=== PATIENT | female | born 1995 | race Caucasian/White ===

== ENCOUNTER 2017-09-04 23:19 | Emergency (ER) | payer OTHER ==
--- NOTE | 2017-09-04 23:32 | ER Report ---
History and Physical Time Seen By MD: 23:29 Hx. of Stated Complaint: patient has gastroperesis and has been having nausea, abd pain, and watery stools off and on for last couple of days. saw primary pcp on saturday and was suppose to see specialist but pain and nausea has gotten even worse in last couple of hours. HPI/ROS CHIEF COMPLAINT: Abdominal pain HISTORY OF PRESENT ILLNESS: This is a 22 year old female. She has a history of gastroparesis and abdominal pain. Has been having nausea, vomiting and watery stools for a couple of days. Has recently seen her PCP and was going to be seeing a specialist next week. She has a CT scan ordered for tomorrow. She had increasing pain and then no further stools and not passing gas. Worsened nausea and vomiting. Concern about possible obstruction. No fevers or chills. Normal urination. Allergies: Coded Allergies: No Known Drug Allergies (Unverified , 09/04/17) Home Meds Active Scripts Ondansetron (ZOFRAN ODT) 4 Mg Tab.rapdis, 4 MG PO Q6H Y for NAUSEA/VOMITING, # 20 TAB.ARMEN 0 Refills Prov:ELVIE PURCELL MD 09/05/17 Hydrocodone Bit/Acetaminophen (HYDROCODON-ACETAMINOPHEN 5-325) 1 Each Tablet, 1 EACH PO Q4H Y for PAIN, #12 TAB 0 Refills Prov:ELVIE PURCELL MD 09/05/17 Past Medical/Surgical History Gastroparesis, exploratory abdominal surgery, PCOS, cholecystectomy Reviewed Nurses Notes: Yes Hx Substance Use Disorder: No Constitutional Vital Sign - Last 24 Hours 09/04/17 09/04/17 09/05/17 09/05/17 23:23 23:45 00:00 00:46 Temp 98.2 Pulse 104 94 81 Resp 16 B/P (MAP) 110/67 116/70 Pulse Ox 96 96 93 09/05/17 09/05/17 01:15 01:30 Pulse 88 100 Pulse Ox 93 91 Physical Exam General Appearance: The patient is alert. Acute distress due to abdominal pain. Eyes: Pupils are equal, round. No pallor, injection or icterus. ENT: Mucous membranes are moist. Normal oral mucosa. Neck: Supple and non tender. Respiratory: Lungs are clear to auscultation. Cardiovascular: Regular rate and rhythm. No murmurs, gallops or rubs. Normal capillary refill. Gastrointestinal: Abdomen is soft, tender mainly lower abdomen. Nondistended. No masses or organomegaly. Normal active bowel sounds. Neurological: Alert and oriented x3. No focal neurologic deficits. Skin: Warm and dry. DIFFERENTIAL DIAGNOSIS: After history and physical exam, differential diagnosis was considered for abdominal pain including but not limited to appendicitis, gastroenteritis, bowel obstruction and urinary tract infection. Medical Decision Making Data Points Result Diagram: 09/04/17 2342 09/04/17 2342 Laboratory Hematology Test 09/04/17 00:20 09/04/17 23:42 Urine Color Straw Urine Clarity Clear Urine pH 6.0 pH (4.8-9.5) Urine Specific [place] 1.004 Urine Protein Negative mg/dL (NEGATIVE) Urine Glucose (UA) Negative mg/dL (NEGATIVE) Urine Ketones Negative mg/dL (NEGATIVE) Urine Blood Negative (NEGATIVE) Urine Nitrite Negative (NEGATIVE) Urine Bilirubin Negative (NEGATIVE) Urine Urobilinogen Negative mg/dL (0.2-1.9) Urine Leukocyte Esterase Negative (NEGATIVE) Urine RBC None /HPF (0-2/HPF) Urine WBC None /HPF (0-5/HPF) Urine Squamous Epithelial Cells Few /LPF (</=FEW) Urine Bacteria Negative /HPF (NONE-FEW) Urine Mucus None /HPF (NONE-FEW) Red Blood Count 5.28 M/uL (4.17-5.56) Mean Corpuscular Volume 88.5 fL (80.0-96.0) Mean Corpuscular Hemoglobin 30.5 pg (26.0-33.0) Mean Corpuscular Hemoglobin Concent 34.5 g/dL (32.0-36.0) Red Cell Distribution Width 12.3 % (11.5-14.5) Mean Platelet Volume 9.6 fL (7.2-11.1) Neutrophils (%) (Auto) 47.8 % (39.4-72.5) Lymphocytes (%) (Auto) 40.9 % (17.6-49.6) Monocytes (%) (Auto) 8.8 % (4.1-12.4) Eosinophils (%) (Auto) 1.6 % (0.4-6.7) Basophils (%) (Auto) 0.9 % (0.3-1.4) Nucleated RBC Relative Count (auto) 0.0 /100WBC Neutrophils # (Auto) 2.9 K/uL (2.0-7.4) Lymphocytes # (Auto) 2.5 K/uL (1.3-3.6) Monocytes # (Auto) 0.5 K/uL (0.3-1.0) Eosinophils # (Auto) 0.1 K/uL (0.0-0.5) Basophils # (Auto) 0.1 K/uL (0.0-0.1) Nucleated RBC Absolute Count (auto) 0.00 K/uL Sodium Level 139 mmol/L (137-145) Potassium Level 3.7 mmol/L (3.5-5.0) Chloride Level 104 mmol/L (98-107) Carbon Dioxide Level 22 mmol/L (22-31) Blood Urea Nitrogen 7 mg/dl (7-18) Creatinine 0.80 mg/dl (0.52-1.04) Glomerular Filtration Rate Calc > 60.0 Random Glucose 108 mg/dl (75-110) Lactate 1.1 mmol/L (0.7-2.1) Calcium Level 9.4 mg/dl (8.4-10.2) Total Bilirubin 0.5 mg/dl (0.2-1.3) Aspartate Amino Transf (AST/SGOT) 25 U/L (0-35) Alanine Aminotransferase (ALT/SGPT) 33 U/L (0-56) Alkaline Phosphatase 75 U/L (0-126) Total Protein 7.4 gm/dl (6.3-8.2) Albumin 4.2 g/dl (3.5-5.0) Human Chorionic Gonadotropin, Qual Negative (NEGATIVE) Chemistry Test 09/04/17 00:20 09/04/17 23:42 Urine Color Straw Urine Clarity Clear Urine pH 6.0 pH (4.8-9.5) Urine Specific [place] 1.004 Urine Protein Negative mg/dL (NEGATIVE) Urine Glucose (UA) Negative mg/dL (NEGATIVE) Urine Ketones Negative mg/dL (NEGATIVE) Urine Blood Negative (NEGATIVE) Urine Nitrite Negative (NEGATIVE) Urine Bilirubin Negative (NEGATIVE) Urine Urobilinogen Negative mg/dL (0.2-1.9) Urine Leukocyte Esterase Negative (NEGATIVE) Urine RBC None /HPF (0-2/HPF) Urine WBC None /HPF (0-5/HPF) Urine Squamous Epithelial Cells Few /LPF (</=FEW) Urine Bacteria Negative /HPF (NONE-FEW) Urine Mucus None /HPF (NONE-FEW) White Blood Count 6.1 k/uL (4.5-11.0) Red Blood Count 5.28 M/uL (4.17-5.56) Hemoglobin 16.1 g/dL (12.0-16.0) Hematocrit 46.7 % (34.0-47.0) Mean Corpuscular Volume 88.5 fL (80.0-96.0) Mean Corpuscular Hemoglobin 30.5 pg (26.0-33.0) Mean Corpuscular Hemoglobin Concent 34.5 g/dL (32.0-36.0) Red Cell Distribution Width 12.3 % (11.5-14.5) Platelet Count 266 K/uL (150-450) Mean Platelet Volume 9.6 fL (7.2-11.1) Neutrophils (%) (Auto) 47.8 % (39.4-72.5) Lymphocytes (%) (Auto) 40.9 % (17.6-49.6) Monocytes (%) (Auto) 8.8 % (4.1-12.4) Eosinophils (%) (Auto) 1.6 % (0.4-6.7) Basophils (%) (Auto) 0.9 % (0.3-1.4) Nucleated RBC Relative Count (auto) 0.0 /100WBC Neutrophils # (Auto) 2.9 K/uL (2.0-7.4) Lymphocytes # (Auto) 2.5 K/uL (1.3-3.6) Monocytes # (Auto) 0.5 K/uL (0.3-1.0) Eosinophils # (Auto) 0.1 K/uL (0.0-0.5) Basophils # (Auto) 0.1 K/uL (0.0-0.1) Nucleated RBC Absolute Count (auto) 0.00 K/uL Glomerular Filtration Rate Calc > 60.0 Lactate 1.1 mmol/L (0.7-2.1) Calcium Level 9.4 mg/dl (8.4-10.2) Total Bilirubin 0.5 mg/dl (0.2-1.3) Aspartate Amino Transf (AST/SGOT) 25 U/L (0-35) Alanine Aminotransferase (ALT/SGPT) 33 U/L (0-56) Alkaline Phosphatase 75 U/L (0-126) Total Protein 7.4 gm/dl (6.3-8.2) Albumin 4.2 g/dl (3.5-5.0) Human Chorionic Gonadotropin, Qual Negative (NEGATIVE) Urinalysis Test 09/04/17 00:20 Urine Color Straw Urine Clarity Clear Urine pH 6.0 pH (4.8-9.5) Urine Specific [place] 1.004 Urine Protein Negative mg/dL (NEGATIVE) Urine Glucose (UA) Negative mg/dL (NEGATIVE) Urine Ketones Negative mg/dL (NEGATIVE) Urine Blood Negative (NEGATIVE) Urine Nitrite Negative (NEGATIVE) Urine Bilirubin Negative (NEGATIVE) Urine Urobilinogen Negative mg/dL (0.2-1.9) Urine Leukocyte Esterase Negative (NEGATIVE) Urine RBC None /HPF (0-2/HPF) Urine WBC None /HPF (0-5/HPF) Urine Squamous Epithelial Cells Few /LPF (</=FEW) Urine Bacteria Negative /HPF (NONE-FEW) Urine Mucus None /HPF (NONE-FEW) EKG/Imaging Imaging EXAMINATION: CT abdomen without IV contrast CT abdomen with IV contrast CT pelvis without IV contrast CT pelvis with IV contrast HISTORY: Abdominal pain. TECHNIQUE: Spiral scans were obtained through the abdomen and pelvis before and during injection of nonionic iodinated intravenous contrast. Sagittal and coronal reformatted images are also submitted. One of the following dose optimization techniques was utilized in the performance of this exam: Automated exposure control; adjustment of the mA and/ or kV according to the patient's size; or use of an iterative reconstruction technique. Specific details can be referenced in the facility's radiology CT exam operational policy. CONTRAST: 75 mL of IV Isovue-370 COMPARISON: None. FINDINGS: Lower chest: Negative. Liver / biliary: Postop cholecystectomy with mild intrahepatic and extrahepatic biliary ductal dilatation. The common bile duct measures 7 mm. No evidence of obstructing mass or stone. The bile duct smoothly tapers to the ampulla and the pancreatic duct is not dilated. Pancreas: Negative. Spleen: Negative. Adrenal glands: Negative. Kidneys: Negative. Pelvic structures: Negative. Bowel: Normal appendix. No bowel obstruction or bowel wall thickening. Peritoneum / retroperitoneum / mesenteries: Negative. Vessels: Negative. Musculoskeletal / Body wall: Mild degenerative disc disease in the lower thoracic spine. No aggressive osseous lesions. Lymph node assessment: Negative. IMPRESSION: 1. Postop cholecystectomy with mild intrahepatic and extrahepatic biliary ductal dilatation. The common bile duct tapers smoothly to the ampulla and the pancreatic duct is not dilated. This is most likely related to post cholecystectomy physiology. 2. Otherwise no acute abnormality in the abdomen or pelvis. 3. Mild degenerative disc disease in the lower thoracic spine. Report Dictated By: Bebeto Merchant MD at 09/05/2017 1:13 AM ED Course/Re-evaluation Clinical Indication for ER IV: Hydration, IV Access ED Course After initial evaluation, Morphine and Zofran were given which helped her symptoms of pain and vomiting. Labs unremarkable. CT scan was done and negative. Patient discharged and will follow-up with her regular doctors for further evaluation. Prescriptions for Lortab and Zofran provided. Decision to Disposition Date: Sep 05, 2017 Decision to Disposition Time: 02:11 Depart Departure Latest Vital Signs Vital Signs Date Time Temp Pulse Resp B/P (MAP) Pulse Ox O2 Delivery O2 Flow Rate FiO2 09/05/17 01:30 100 91 09/05/17 00:46 116/70 09/04/17 23:23 98.2 16 Impression: Primary Impression: Abdominal pain Condition: Improved Disposition: HOME OR SELF-CARE New Scripts Ondansetron (ZOFRAN ODT) 4 Mg Tab.rapdis 4 MG PO Q6H Y for NAUSEA/VOMITING, #20 TAB.ARMEN 0 Refills Prov: ELVIE PURCELL MD 09/05/17 Hydrocodone Bit/Acetaminophen (HYDROCODON-ACETAMINOPHEN 5-325) 1 Each Tablet 1 EACH PO Q4H Y for PAIN, #12 TAB 0 Refills Prov: ELVIE PURCELL MD 09/05/17 Patient Instructions: Acute Abdominal Pain (ED) Additional Instructions: We did not find any signs of obstruction or other dangerous problems tonight. Follow-up with your regular doctor. You can take Ibuprofen 200mg over the counter tablets, take 4 tablets every 8 hours as needed for pain. Take Lortab 5/325, one every 4 hours as needed for severe pain. Take Zofran 4mg, one every 6 hours as needed for nausea. Return for re-evaluation for severe worsening pain, uncontrollable nausea and vomiting, or fevers and chills. Problem Qualifiers Primary Impression: Abdominal pain Abdominal location: lower abdomen, unspecified Qualified Codes: R10.30 - Lower abdominal pain, unspecified ELVIE PURCELL MD Sep 04, 2017 23:32
[2017-09-04] MEDS ORDERED: ONDANSETRON 4 MG/2 ML VIAL IVP ONE (23:40)
[2017-09-04] MEDS ORDERED: NS(*) 0.9% 1000 ML BAG 1,000 ML IV ONE (23:40)
[2017-09-04] MEDS ORDERED: MORPHINE 4 MG/ML SDV IVP ONE (23:40)
[2017-09-04 23:50] LABS: PLATELET COUNT, AUTOMATED 266 K/uL (150-450)
[2017-09-04] MEDS ORDERED: IOPAMIDOL 76% 75 ML INFUS BTL 75 ML ONE (23:50)
[2017-09-05 00:46] VITALS: BP 116/70
--- NOTE | 2017-09-05 01:38 | RADIOLOGY IMAGING REPORT ---
FACILITY: [facility] - [place] PATIENT NAME: Patsy Worthington : 1995 MR: [id number] V: [id number] EXAM DATE: ORDERING PHYSICIAN: ELVIE PURCELL TECHNOLOGIST: Location: [facility] [place] Patient: Patsy Worthington : 1995 Visit/Account:[id number] Date of Sevice: 09/05/2017 EXAMINATION: CT abdomen without IV contrast CT abdomen with IV contrast CT pelvis without IV contrast CT pelvis with IV contrast HISTORY: Abdominal pain. TECHNIQUE: Spiral scans were obtained through the abdomen and pelvis before and during injection of nonionic iodinated intravenous contrast. Sagittal and coronal reformatted images are also submitted . One of the following dose optimization techniques was utilized in the performance of this exam: Autom ated exposure control; adjustment of the mA and/or kV according to the patient's size; or use of an i terative reconstruction technique. Specific details can be referenced in the facility's radiology C T exam operational policy. CONTRAST: 75 mL of IV Isovue-370 COMPARISON: None. FINDINGS: Lower chest: Negative. Liver / biliary: Postop cholecystectomy with mild intrahepatic and extrahepatic biliary ductal dilata tion. The common bile duct measures 7 mm. No evidence of obstructing mass or stone. The bile duct smo othly tapers to the ampulla and the pancreatic duct is not dilated. Pancreas: Negative. Spleen: Negative. Adrenal glands: Negative. Kidneys: Negative. Pelvic structures: Negative. Bowel: Normal appendix. No bowel obstruction or bowel wall thickening. Peritoneum / retroperitoneum / mesenteries: Negative. Vessels: Negative. Musculoskeletal / Body wall: Mild degenerative disc disease in the lower thoracic spine. No aggressiv e osseous lesions. Lymph node assessment: Negative. IMPRESSION: 1. Postop cholecystectomy with mild intrahepatic and extrahepatic biliary ductal dilatation. The comm on bile duct tapers smoothly to the ampulla and the pancreatic duct is not dilated. This is most like ly related to post cholecystectomy physiology. 2. Otherwise no acute abnormality in the abdomen or pelvis. 3. Mild degenerative disc disease in the lower thoracic spine. Report Dictated By: Bebeto Merchant MD at 09/05/2017 1:13 AM Report E-Signed By: Bebeto Merchant MD at 09/05/2017 1:32 AM WSN:[id number]
[2017-09-05] MEDS ORDERED: ONDA4TAB PO (02:13)
[2017-09-05] MEDS ORDERED: LOR5/325 PO (02:13)
[2017-09-05] MEDS ORDERED: ACET/HYDROC 5/325MG TH ER ONLY 2 TAB/BOTTLE PO ONE (02:15)
[2017-09-05] MEDS ORDERED: ONDANSETRON 4 MG ODT TH SL ONE (02:15)
== END 2017-09-05 02:29 | disposition home or self-care (01) ==
LOC: ER 23:43
DX: R10.30 Lower abdominal pain, unspecified (principal)
CPT/HCPCS: 74178; 81001; 83605; 84703; 85025; 96361; 96374; 96375; 99283; J2270; J2405; J7030; Q9967; S0119; 82040; 82247; 82310; 82374; 82435; 82565; 82947; 84075; 84132; 84155; 84295; 84450; 84460; 84520

== ENCOUNTER 2017-09-12 01:39 | Day surgery (SDC) | payer OTHER ==
[2017-09-12] VITALS (7 sets, daily range): BP systolic 92–120; BP diastolic 52–84
[~2017-09-12] VITALS: Ht 167.6 cm; Wt 60.3 kg
[~2017-09-12 01:39] MED LIST: DEXL60CA6 PO; LOR5/325 PO; ONDA4TAB PO; [UNRECOGNIZED DRUG - CODE] PO
[2017-09-12] MEDS ORDERED: PROPOFOL EMUL(*) 10MG/ML 20 ML 40 ML ONE (13:55)
[2017-09-12] MEDS ORDERED: LIDOCAINE MPF 1% 5 ML VIAL ONE (13:55)
[2017-09-12] MEDS ORDERED: PROPOFOL EMUL(*) 10MG/ML 20 ML 20 ML ONE (14:05)
[2017-09-12] MEDS ORDERED: GLYCOPYRROLATE 0.2 MG/ML SDV IVP ONE (15:00)
[2017-09-12] MEDS ORDERED: NORMOSOL R SOLN(*) 1000 ML BAG 1,000 ML IV PRN (15:35)
[2017-09-12] MEDS ORDERED: LIDOCAINE/SOD BICARB 8.4% SYR ID ONE (15:35)
[2017-09-12] MEDS ORDERED: ONDANSETRON 4 MG/2 ML VIAL ONE (17:29)
== END 2017-09-12 16:10 | disposition home or self-care (01) ==
LOC: OR 01:39
PROVIDERS: ATTEND Internal Medicine Gastroenterology
DX: K64.8 Other hemorrhoids (principal); Q43.8 Other specified congenital malformations of intestine; K44.9 Diaphragmatic hernia without obstruction or gangrene; K20.9 Esophagitis, unspecified; K29.70 Gastritis, unspecified, without bleeding
CPT/HCPCS: 00811; 43239; 45378; 88305; 88313; 88344; J2001; J2405; J2704; J3490

== ENCOUNTER → 2018-05-30 | Outpatient (REF) ==
[2018-05-30 12:48] LABS: LDL CHOLESTEROL 79 mg/dl
== END ==
DX: Z02.9 Encounter for administrative examinations, unspecified (principal)